=== PATIENT | male | born 1995 | race Caucasian/White ===

== ENCOUNTER 2022-07-04 09:11 | Inpatient (IN) | payer OTHER ==
[~2022-07-04] VITALS: Ht 188 cm; Wt 86.5 kg
[2022-07-04] MEDS ORDERED: ACET-683 PO (09:39)
[2022-07-04 09:45] LABS: BASO # 0.1 10^3/uL (0.0-0.2); BASO % 0.6 % (0.0-1.0); EOS # 0.3 10^3/uL (0.0-0.5); EOS % 3.1 % (0.0-3.0); HEMATOCRIT 47.3 % (42.0-52.0); HEMOGLOBIN 15.9 g/dl (13.5-17.5); LYMPH # 2.3 10^3/uL (1.5-5.0); LYMPH % 27.9 % (24.0-44.0); MEAN CORPUSCULAR HEMOGLOBIN 30.1 pg (27.0-33.0); MEAN CORPUSCULAR HGB CONC 33.6 g/dl (32.0-36.5); MEAN CORPUSCULAR VOLUME 89.4 fl (80.0-96.0); MONO # 0.6 10^3/uL (0.0-0.8); MONO % 7.6 % (2.0-8.0); NEUTROPHILS % 60.3 % (36.0-66.0); PLATELET COUNT, AUTOMATED 250 10^3/uL (150-450); RED BLOOD COUNT 5.29 10^6/uL (4.30-6.10); WHITE BLOOD COUNT 8.3 10^3/uL (4.0-10.0)
[2022-07-04 10:18] LABS: LIPASE 28 U/L (12-53)
[2022-07-04 10:21] LABS: ALBUMIN 4.3 G/DL (3.2-5.2); ALKALINE PHOSPHATASE 70 U/L (46-116); ALT/SGPT 59 U/L (7.0-40); AST/SGOT 173 U/L (<34); BILIRUBIN,DIRECT 0.5 MG/DL (<0.4); BILIRUBIN,TOTAL 1.4 MG/DL (0.3-1.2); BLOOD UREA NITROGEN 16 MG/DL (9-23); CARBON DIOXIDE LEVEL 29 MMOL/L (20-31); CHLORIDE LEVEL 103 MMOL/L (98-107); CK-MB VALUE MASS 22.1 NG/ML (<3.6); CREATININE FOR GFR 0.91 MG/DL (0.70-1.30); GLOMERULAR FILTRATION RATE > 60.0 (>60); GLUCOSE, FASTING 73 MG/DL (60-100); POTASSIUM SERUM 4.1 MMOL/L (3.5-5.1); SODIUM LEVEL 139 MMOL/L (136-145); TOTAL PROTEIN 7.4 G/DL (5.7-8.2)
[2022-07-04 10:23] LABS: FREE T4 1.08 NG/DL (0.89-1.76); THYROID STIMULATING HORMONE 2.475 uIU/ML (0.55-4.78)
[2022-07-04] MEDS ORDERED: ISOVUE-370 76% 100ML VIAL As Ordered ONE (11:02)
[2022-07-04 11:08] LABS: CPK CREATINE PHOSPHOKINASE 23228 U/L (46-171); MB/CK RELATIVE INDEX 0.09 (< OR =4)
[2022-07-04 11:11] LABS: INR 1.05; PROTHROMBIN TIME 13.9 SECONDS (12.5-14.5)
[2022-07-04 11:12] LABS: PARTIAL THROMBOPLASTIN TIME 25.2 SECONDS (24.8-34.2)
[2022-07-04] MEDS ORDERED: NS 2,450 ML in IV 1 EA IV ONE (11:15)
[2022-07-04 11:21] LABS: CK-MB VALUE MASS 20.8 NG/ML (<3.6)
[2022-07-04 11:35] LABS: MB/CK RELATIVE INDEX 0.09 (< OR =4)
[2022-07-04] MEDS ORDERED: HOME MED LIST COMPLETE! XX SCH (12:20)
[2022-07-04] MEDS ORDERED: KETOROLAC 30 MG/ML 1ML VIAL IV ONE (12:20)
[2022-07-04] MEDS ORDERED: ACETAMINOPHEN TAB 650MG DOSE (2X325MG) PO PRN (13:15)
[2022-07-04] MEDS ORDERED: MOM 30ML SUSPENSION UDC PO PRN (13:15)
[2022-07-04] MEDS ORDERED: KETOROLAC 30 MG/ML 1ML VIAL IV PRN ×2 (13:30)
[2022-07-04] MEDS ORDERED: MORPHINE 2 MG/ML 1ML VIAL IV PRN (13:30)
[2022-07-04] MEDS ORDERED: LIDOCAINE 5% (LIDODERM) PATCH TD ONE (13:35)
[2022-07-04] MEDS: NS 1,000 ML IV SCH ×2 (14:09→17:20)
[2022-07-04] MEDS: ACETAMINOPHEN 325 MG TAB PO SCH ×2 (14:32→17:20)
[2022-07-04 14:35] VITALS: BP 112/78
[2022-07-04] MEDS: RIVAROXABAN 10MG TAB (XARELTO) PO SCH (17:20)
[2022-07-04 20:00] VITALS: BP 108/70
[2022-07-04] MEDS: DICLOFENAC EPOLAMINE 1.3% PATCH TOP SCH (20:42)
[2022-07-05] MEDS: ACETAMINOPHEN 325 MG TAB PO SCH ×3 (00:15→18:56)
[2022-07-05] MEDS ORDERED: LR 1,000 ML IV ONE (01:55)
[2022-07-05] MEDS: LR 1,000 ML IV SCH ×2 (03:03→18:00)
[2022-07-05 06:00] VITALS: BP 100/70
[2022-07-05 07:01] LABS: HEMATOCRIT 39.4 % (42.0-52.0); MEAN CORPUSCULAR HGB CONC 32.7 g/dl (32.0-36.5); MEAN CORPUSCULAR VOLUME 91.6 fl (80.0-96.0); PLATELET COUNT, AUTOMATED 199 10^3/uL (150-450); WHITE BLOOD COUNT 5.7 10^3/uL (4.0-10.0)
[2022-07-05 07:13] LABS: HEMOGLOBIN 12.9 g/dl (13.5-17.5)
[2022-07-05 07:56] LABS: ALBUMIN 3.1 G/DL (3.2-5.2); ALKALINE PHOSPHATASE 54 U/L (46-116); ALT/SGPT 55 U/L (7.0-40); AST/SGOT 150 U/L (<34); BILIRUBIN,TOTAL 1.1 MG/DL (0.3-1.2); BLOOD UREA NITROGEN 9 MG/DL (9-23); CALCIUM LEVEL 8.3 MG/DL (8.5-10.1); CARBON DIOXIDE LEVEL 28 MMOL/L (20-31); CHLORIDE LEVEL 108 MMOL/L (98-107); CPK CREATINE PHOSPHOKINASE 19814 U/L (46-171); CREATININE FOR GFR 0.87 MG/DL (0.70-1.30); GLOMERULAR FILTRATION RATE > 60.0 (>60); GLUCOSE, FASTING 83 MG/DL (60-100); POTASSIUM SERUM 4.4 MMOL/L (3.5-5.1); SODIUM LEVEL 141 MMOL/L (136-145); TOTAL PROTEIN 5.3 G/DL (5.7-8.2)
[2022-07-05] MEDS: DICLOFENAC EPOLAMINE 1.3% PATCH TOP SCH ×2 (08:54→21:02)
[2022-07-05 14:00] VITALS: BP 110/60
[2022-07-05] MEDS: RIVAROXABAN 10MG TAB (XARELTO) PO SCH (18:56)
[2022-07-05 20:12] VITALS: BP 126/76
[2022-07-05] MEDS: NS 1,000 ML IV SCH ×2 (21:02→22:42)
[2022-07-06] MEDS: ACETAMINOPHEN 325 MG TAB PO SCH ×5 (00:06→23:55)
[2022-07-06] MEDS: NS 1,000 ML IV SCH ×3 (03:36→23:53)
[2022-07-06 05:33] VITALS: BP 117/66
[2022-07-06 06:23] LABS: HEMATOCRIT 38.9 % (42.0-52.0); HEMOGLOBIN 12.8 g/dl (13.5-17.5); MEAN CORPUSCULAR HEMOGLOBIN 30.3 pg (27.0-33.0); MEAN CORPUSCULAR HGB CONC 32.9 g/dl (32.0-36.5); MEAN CORPUSCULAR VOLUME 92.2 fl (80.0-96.0); PLATELET COUNT, AUTOMATED 199 10^3/uL (150-450); RED BLOOD COUNT 4.22 10^6/uL (4.30-6.10); WHITE BLOOD COUNT 5.2 10^3/uL (4.0-10.0)
[2022-07-06 06:47] LABS: ALBUMIN 3.1 G/DL (3.2-5.2); ALKALINE PHOSPHATASE 52 U/L (46-116); ALT/SGPT 60 U/L (7.0-40); AST/SGOT 144 U/L (<34); BILIRUBIN,TOTAL 0.6 MG/DL (0.3-1.2); BLOOD UREA NITROGEN 7 MG/DL (9-23); CALCIUM LEVEL 8.1 MG/DL (8.5-10.1); CARBON DIOXIDE LEVEL 30 MMOL/L (20-31); CHLORIDE LEVEL 108 MMOL/L (98-107); CREATININE FOR GFR 0.86 MG/DL (0.70-1.30); GLOMERULAR FILTRATION RATE > 60.0 (>60); GLUCOSE, FASTING 83 MG/DL (60-100); POTASSIUM SERUM 4.3 MMOL/L (3.5-5.1); SODIUM LEVEL 142 MMOL/L (136-145); TOTAL PROTEIN 5.4 G/DL (5.7-8.2)
[2022-07-06 06:58] LABS: CPK CREATINE PHOSPHOKINASE 14899 U/L (46-171)
[2022-07-06] MEDS: DICLOFENAC EPOLAMINE 1.3% PATCH TOP SCH ×2 (10:36→20:07)
[2022-07-06 14:00] VITALS: BP 123/50
[2022-07-06] MEDS: RIVAROXABAN 10MG TAB (XARELTO) PO SCH (17:28)
[2022-07-06 21:38] VITALS: BP 131/69
[2022-07-07 05:27] VITALS: BP 110/62
[2022-07-07] MEDS: ACETAMINOPHEN 325 MG TAB PO SCH ×2 (05:44→11:40)
[2022-07-07 06:12] LABS: HEMOGLOBIN 13.9 g/dl (13.5-17.5); MEAN CORPUSCULAR HEMOGLOBIN 29.6 pg (27.0-33.0); MEAN CORPUSCULAR HGB CONC 32.3 g/dl (32.0-36.5); MEAN CORPUSCULAR VOLUME 91.7 fl (80.0-96.0); PLATELET COUNT, AUTOMATED 220 10^3/uL (150-450); RED BLOOD COUNT 4.69 10^6/uL (4.30-6.10); WHITE BLOOD COUNT 5.9 10^3/uL (4.0-10.0)
[2022-07-07 06:46] LABS: ALBUMIN 3.5 G/DL (3.2-5.2); ALKALINE PHOSPHATASE 57 U/L (46-116); ALT/SGPT 62 U/L (7.0-40); AST/SGOT 119 U/L (<34); BILIRUBIN,TOTAL 0.5 MG/DL (0.3-1.2); BLOOD UREA NITROGEN 6 MG/DL (9-23); CALCIUM LEVEL 8.7 MG/DL (8.5-10.1); CARBON DIOXIDE LEVEL 32 MMOL/L (20-31); CHLORIDE LEVEL 106 MMOL/L (98-107); CPK CREATINE PHOSPHOKINASE 9923 U/L (46-171); CREATININE FOR GFR 0.92 MG/DL (0.70-1.30); GLOMERULAR FILTRATION RATE > 60.0 (>60); GLUCOSE, FASTING 87 MG/DL (60-100); POTASSIUM SERUM 4.3 MMOL/L (3.5-5.1); SODIUM LEVEL 142 MMOL/L (136-145); TOTAL PROTEIN 6.1 G/DL (5.7-8.2)
[2022-07-07] MEDS: DICLOFENAC EPOLAMINE 1.3% PATCH TOP SCH ×2 (08:09→16:35)
[2022-07-07] MEDS ORDERED: IBUP-1114 PO (11:03)
[2022-07-07] MEDS ORDERED: ACET-683 PO (11:03)
[2022-07-07] MEDS ORDERED: DICL1PAT6 TOP (11:03)
[2022-07-07 14:00] VITALS: BP 112/60
[2022-07-07] MEDS ORDERED: NS 1,000 ML IV SCH (15:00)
== END 2022-07-07 16:58 | disposition home or self-care (01) | DRG 558 ==
LOC: M ED 09:11 → EDBD 09:11 → M ED INP 13:14 → ENRESERV 13:55 → M MSPAV 14:36
PROVIDERS: ADMIT Student in an Organized Health Care Education/Training Program; ATTEND Student in an Organized Health Care Education/Training Program
DX: M62.82 Rhabdomyolysis (principal); R07.89 Other chest pain; Z88.0 Allergy status to penicillin; R74.01 Elevation of levels of liver transaminase levels; R00.1 Bradycardia, unspecified